=== PATIENT | female | born 1940 | race Caucasian/White ===

== ENCOUNTER 2017-06-23 11:15 | Outpatient (RCR) | payer MEDICARE, BC ==
[~2017-06-23 11:15] MED LIST: B COMPLEX1 TA2 PO; CALCIUM 500 + D1 TA1 PO; CALCIUM 500500 M1 PO; VITAMIN C500 MG PO; VITAMIN D 400400 IU PO; ZOFRAN 8MG8 MG PO; ZOLOFT 50MG50 MG PO
== END 2017-07-09 | disposition home or self-care (01) ==
LOC: WSPT
DX: M47.895 Other spondylosis, thoracolumbar region (principal); M17.11 Unilateral primary osteoarthritis, right knee; M41.9 Scoliosis, unspecified; Z79.899 Other long term (current) drug therapy
CPT/HCPCS: G8981-GP; G8982-GP

== ENCOUNTER 2017-09-24 12:03 | Outpatient (RCR) | payer MEDICARE, BC | END 2017-12-23 | disposition home or self-care (01) | LOC: WSPT | DX: M47.815 Spondylosis without myelopathy or radiculopathy, thoracolumbar region (principal); M17.11 Unilateral primary osteoarthritis, right knee; M41.9 Scoliosis, unspecified | CPT/HCPCS: G8982-GP; G8983-GP ==

== ENCOUNTER 2018-08-06 13:30 | Outpatient (RCR) | payer MEDICARE, BC | END 2018-08-18 14:52 | disposition home or self-care (01) | LOC: WSOT 13:30 | DX: Z48.89 Encounter for other specified surgical aftercare (principal); M79.89 Other specified soft tissue disorders ==

== ENCOUNTER → 2018-08-21 | Outpatient (CLI) | payer MEDICARE, BC | LOC: COL.RAD 14:15 | DX: M19.042 Primary osteoarthritis, left hand (principal) | CPT/HCPCS: J3301; Q9967 ==

== ENCOUNTER 2021-11-29 15:00 | Outpatient (RCR) | payer MEDICARE, BC | END 2021-12-10 | disposition home or self-care (01) | LOC: WSPT | DX: S49.82XA Other specified injuries of left shoulder and upper arm, initial encounter (principal) ==